=== PATIENT | female | born 1965 ===

== ENCOUNTER 2023-08-25 17:56 | Emergency (ER) | payer MEDICAID ==
[~2023-08-25] VITALS: Ht 162.6 cm; Wt 81.8 kg
[2023-08-25] MEDS ORDERED: BENA-18 PO (18:21)
[2023-08-25] MEDS ORDERED: CITA10TA99 PO (18:22)
[2023-08-25] MEDS ORDERED: FENO150C4 PO (18:22)
[2023-08-25] MEDS ORDERED: FENO160T75 PO (18:23)
[2023-08-25] MEDS: CloNIDine HCL 0.1 MG TABLET PO ONE (19:54)
[2023-08-25] MEDS: KETOROLAC TROMETHAMINE 30 MG/ML VIAL IVP ONE (19:54)
[2023-08-25] MEDS: ONDANSETRON HCL 4 MG/2 ML VIAL IVP ONE (19:54)
[2023-08-25 19:59] LABS: BASOPHILS % (AUTO) 0.7 % (0.0-2.0); EOSINOPHILS % (AUTO) 1.8 % (1.0-6.0); HEMATOCRIT 34.5 % (36-46); HEMOGLOBIN 11.2 g/dL (12.0-16.0); LYMPHOCYTES # (AUTO) 2.5 K/uL (1.0-4.8); LYMPHOCYTES % (AUTO) 38.3 % (22.0-44.0); MEAN CORPUSCULAR HEMOGLOBIN 24.7 pg (26.0-34.0); MEAN CORPUSCULAR HGB CONC 32.4 G/dL (31.0-37.0); MEAN CORPUSCULAR VOLUME 76 fL (80-100); MONOCYTES # (AUTO) 0.5 K/uL (0.1-1.0); MONOCYTES % (AUTO) 8.3 % (2.0-9.0); NEUTROPHILS # (AUTO) 3.3 K/uL (1.8-7.7); NEUTROPHILS % (AUTO) 50.9 % (40.0-70.0); PLATELET COUNT (AUTO) 312 K/uL (150-450); RED BLOOD CELL COUNT(AUTO) 4.52 MIL/uL (4.00-5.20); RED CELL DISTRIBUTION WIDTH 18.2 % (11.5-14.5); WHITE BLOOD COUNT (AUTO) 6.5 K/uL (4.5-11.0)
[2023-08-25 20:07] LABS: ANION GAP 7 mmol/L (8-16); CALCIUM, TOTAL 8.5 mg/dL (8.8-10.5); CARBON DIOXIDE 26 mmol/L (22-29); CHLORIDE 105 mmol/L (98-107); CREATININE 0.64 mg/dL (0.60-1.30); GLOMERULAR FILTR. RATE CALC > 60 mL/min (>60); GLUCOSE,RANDOM 99 mg/dL (70-110); POTASSIUM 3.9 mmol/L (3.5-5.1); SODIUM SERUM 138 mmol/L (136-145); UREA NITROGEN, BLOOD 13 mg/dL (7-18)
[2023-08-25 20:11] LABS: RBC MORPHOLOGY COMMENT ABNORMAL RBC MORPH
[2023-08-25 20:13] LABS: ALANINE AMINOTRANSFERASE 34 U/L (12-78); ALBUMIN 2.8 g/dL (3.4-5.0); ALKALINE PHOSPHATASE 66 U/L (46-116); ASPARTATE AMINOTRANSFERASE 29 U/L (15-37); BILIRUBIN,TOTAL 0.2 mg/dL (0.1-1.0); TOTAL PROTEIN, SERUM 6.6 g/dL (6.4-8.2)
[2023-08-25] MEDS: SODIUM CHLORIDE 0.9% 1,000 ML IV ONE (20:15)
[2023-08-25] MEDS ORDERED: SODIUM CHLORIDE 0.9% 100 ML ONE (20:23)
[2023-08-25] MEDS ORDERED: IOHEXOL 350 MG/ML 100 ML VIAL ONE (20:23)
[2023-08-25] MEDS: DEXAMETHASONE SOD PHOS 4 MG/ML 5 ML VIAL IVP ONE (21:34)
[2023-08-25 21:39] VITALS: BP 154/99; PULSE 58; RESP 18; TEMP 98.2
== END 2023-08-25 22:30 | disposition home or self-care (01) ==
LOC: EMS 17:56
DX: H53.462 Homonymous bilateral field defects, left side (principal); R51.9 Headache, unspecified; I10 Essential (primary) hypertension; F17.210 Nicotine dependence, cigarettes, uncomplicated
CPT/HCPCS: 99285; 96374; 70496; 96375; 96361; 80053; 85025; 36415; J1100; J1885; J2405; Q9967; J7030; J7050